=== PATIENT | male | born 1980 | race Hispanic/Latino ===

== ENCOUNTER 2016-05-05 23:29 | Emergency (ER) | payer MEDICARE ==
[2016-05-06 00:16] VITALS: BP 136/79
[2016-05-06] MEDS ORDERED: TYLENOL PO ONE (01:07)
--- NOTE | 2016-05-06 01:12 | Emergency Department Report ---
HPI - General Chief Complaint: Extremity Injury, Upper Time Seen by Provider: 05/06/16 00:30 - HPI HPI: The patient is a 36-year-old male who presents for evaluation of left hand pain. The patient reports injuring his left hand earlier today when he punched a door out of anger. He reports constant mild pain to the lateral aspect of the left hand since, exacerbated with movement of the left hand or digits. He denies trauma or injury elsewhere, paresthesias, color change, loss of motor function. ED Past Medical Hx - Past Medical History Hx Psychiatric Treatment: Yes - Social History Smoking Status: Current Every Day Smoker Substance Use Type: Alcohol, Marijuana - Medications Home Medications: Home Medications Medication Instructions Recorded Confirmed Last Taken Type Acetaminophen/Codeine [Tylenol #3] 1 tab PO Q6H PRN #12 tab 05/06/16 Unknown Rx ED Review of Systems ROS: Stated complaint: FRACTURE LT HAND Other details as noted in HPI Constitutional: denies: fever ENT: denies: throat or neck pain Respiratory: denies: cough, shortness of breath Cardiovascular: denies: chest pain Musculoskeletal: reports left hand pain Skin: denies: rash Neurological: denies: headache Hematological/Lymphatic: denies: easy bleeding or easy bruising Psych: denies sadness or hopelessness Physical Exam - Physical Exam Vital Signs: Vital Signs 05/05/16 05/05/16 05/05/16 23:43 23:44 23:45 Temperature Pulse Rate Blood Pressure 136/79 136/79 O2 Sat by Pulse 96 97 98 Oximetry 05/05/16 05/05/16 05/05/16 23:47 23:49 23:51 Temperature 97.9 F Pulse Rate 62 Blood Pressure 136/79 136/79 136/79 O2 Sat by Pulse 97 97 94 Oximetry 05/05/16 05/05/16 05/05/16 23:53 23:55 23:57 Temperature Pulse Rate Blood Pressure 136/79 136/79 136/79 O2 Sat by Pulse 98 97 97 Oximetry Physical Exam: General: well-nourished, well-developed, no acute distress Head: Normocephalic, atraumatic Eyes: normal sclera Neck: trachea midline, neck supple, No neck stiffness, no cervical adenopathy Respiratory: Breath sounds equal bilaterally, no wheezing, rales, or rhonchi Cardio: S1 and S2 present, no murmurs, rubs, gallops Musc: dorsal left hand pain overlying the fifth metacarpal, no obvious gross deformity, distal sensation and motor function intact, capillary refill is brisk Skin: No rash Neuro: no facial drooping, normal speech Psych: Normal affect ED Course Vital Signs 05/05/16 05/05/16 05/05/16 23:43 23:44 23:45 Temperature Pulse Rate Blood Pressure 136/79 136/79 O2 Sat by Pulse 96 97 98 Oximetry 05/05/16 05/05/16 05/05/16 23:47 23:49 23:51 Temperature 97.9 F Pulse Rate 62 Blood Pressure 136/79 136/79 136/79 O2 Sat by Pulse 97 97 94 Oximetry 05/05/16 05/05/16 05/05/16 23:53 23:55 23:57 Temperature Pulse Rate Blood Pressure 136/79 136/79 136/79 O2 Sat by Pulse 98 97 97 Oximetry ED Medical Decision Making - Medical Decision Making The patient was seen and examined by myself. The patient given a tablet of Tylenol for his pain. X-ray of the left hand is obtained and reveals a left fifth metacarpal fracture with minimal and acceptable angulation. The patient is placed in an gutter splint. The patient was reevaluated and reported that their symptoms were markedly improved. The patient is stable for discharge with outpatient follow-up. The patient is given follow-up and return instructions. The patient expressed understanding and agreed with the plan. The patient is discharged in stable condition. Critical care attestation.: If time is entered above; I have spent that time in minutes in the direct care of this critically ill patient, excluding procedure time. ED Disposition Clinical Impression: Closed fracture of fifth metacarpal bone of left hand Qualifiers: Encounter type: initial encounter Metacarpal location: neck Fracture alignment : displaced Qualified Code(s): S62.337A - Displaced fracture of neck of fifth metacarpal bone, left hand, initial encounter for closed fracture Disposition: DISCHARGED TO HOME OR SELFCARE Is pt being admited?: No Does the pt Need Aspirin: No Condition: Stable Instructions: Hand Fracture (ED), Boxer Fracture (ED) Additional Instructions: follow up with the referred orthopedic surgeon, Dr. Babb within the next 48-72 hours. Referrals: KARSON BABB MD [Staff Physician] - 3-5 Days Time of Disposition: 01:08
--- NOTE | 2016-05-06 09:23 | XRay Report ---
Left hand 3 views: History: Fracture fifth metacarpal. Pain. Findings: There is fracture noted neck of fifth metacarpal left hand. Impression: Fractured neck of fifth metacarpal left hand.
== END 2016-05-06 03:15 | disposition home or self-care (01) ==
LOC: ED 23:29 → EEVIPCON 23:29 → ED 05-06 03:15
DX: S62.337A Displaced fracture of neck of fifth metacarpal bone, left hand, initial encounter for closed fracture (principal); F17.200 Nicotine dependence, unspecified, uncomplicated; F12.90 Cannabis use, unspecified, uncomplicated; W26.8XXA Contact with other sharp object(s), not elsewhere classified, initial encounter; Y93.89 Activity, other specified; Y99.9 Unspecified external cause status; Y92.89 Other specified places as the place of occurrence of the external cause
CPT/HCPCS: 99284

== ENCOUNTER 2016-05-08 04:59 | Emergency (ER) | payer MEDICARE ==
[2016-05-08] MEDS ORDERED: ZOFRAN IV ONE (06:15)
[2016-05-08] MEDS ORDERED: SUBLIMAZE IV ONE ×2 (06:15)
[2016-05-08] MEDS ORDERED: AMIDATE IV ONE ×2 (06:15→06:39)
[2016-05-08] MEDS ORDERED: SUBLIMAZE ONE (06:18)
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
--- NOTE | 2016-05-08 07:24 | XRay Report ---
RIGHT SHOULDER, ONE VIEW: History: Postreduction film. Findings: The anterior, inferior dislocation at the right glenohumeral joint has been reduced and now appears anatomic in alignment. No obvious fracture on this limited AP view. Impression: Successful reduction of the right shoulder dislocation.
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
[2016-05-08 09:26] VITALS: BP 138/88
== END 2016-05-08 09:28 | disposition home or self-care (01) ==
LOC: ED 04:59
DX: S43.004A Unspecified dislocation of right shoulder joint, initial encounter (principal); S62.337A Displaced fracture of neck of fifth metacarpal bone, left hand, initial encounter for closed fracture; F17.200 Nicotine dependence, unspecified, uncomplicated; Z85.72 Personal history of non-Hodgkin lymphomas; Y04.0XXA Assault by unarmed brawl or fight, initial encounter; Y93.89 Activity, other specified; Y99.9 Unspecified external cause status; Y92.89 Other specified places as the place of occurrence of the external cause
CPT/HCPCS: 23650; 70450; 73020; 73030; 73060; 73130; 96374; 96375; 96376; 99285; J2405; J3010